=== PATIENT | female | born 1965 ===

== ENCOUNTER 2021-11-14 17:50 | Inpatient (IN) | payer OTHER ==
[~2021-11-14] VITALS: Ht 160 cm; Wt 73.3 kg
[2021-11-14 18:20] LABS: Calcium, Ionized (POC) 1.12 mmol/L (1.10-1.46); Chloride (POC) 106 mmol/L (98-108); Creatinine (POC) 0.4 mg/dL (0.6-1.0); Glucose (ISTAT POC) 395 mg/dL (70-99); Hemoglobin (POC) 16.7 g/dL (12.0-16.0); Potassium (POC) 5.7 mmol/L (3.5-5.5); Sodium (POC) 136 mmol/L (135-148); Total CO2 (POC) 20 mmol/L (21-32)
[2021-11-14 18:40] LABS: BASOPHILS ABSOLUTE AUTO 0.07 K/mm3 (0.00-0.23); BASOPHILS PERCENT AUTO 0 % (0-2); EOSINOPHILS ABSOLUTE AUTO 0.03 K/mm3 (0.00-0.68); EOSINOPHILS PERCENT AUTO 0 % (0-6); Hematocrit 45.8 % (33.0-51.0); Hemoglobin 16.5 g/dL (11.5-16.0); IMMATURE GRAN ABSOLUTE AUTO 0.07 K/mm3 (0.00-0.10); IMMATURE GRAN PERCENT AUTO 0 % (0-1); LYMPHOCYTES ABSOLUTE AUTO 2.79 K/mm3 (0.84-5.20); LYMPHOCYTES PERCENT AUTO 18 % (21-46); MONOCYTES ABSOLUTE AUTO 0.72 K/mm3 (0.16-1.47); MONOCYTES PERCENT AUTO 5 % (4-13); Mean Corpuscular HGB 28.9 pg (26.0-34.0); Mean Corpuscular Volume 80 fL (80-100); Mean Platelet Volume 12.2 fL (9.1-12.4); NEUTROPHILS ABSOLUTE AUTO 11.88 K/mm3 (1.96-9.15); NEUTROPHILS PERCENT AUTO 77 % (41-73); Platelet Count 226 K/mm3 (150-400); RDW Coefficient Variation 12.4 % (11.7-14.2); RDW Standard Deviation 35.5 fL (35.1-46.3); Red Blood Cell Count 5.71 M/mm3 (3.80-5.20); White Blood Cell Count 15.56 K/mm3 (4.00-11.30)
[2021-11-14 18:46] LABS: Source, Urine Foley catheter
[2021-11-14 18:58] LABS: Appearance, Urine Clear (Clear); Bilirubin, Urine Neg (Neg); Blood, Urine Neg (Neg); Glucose Qualitative, Urine 4+ (Neg); Ketones, Urine 4+ (Neg); Leukocyte Esterase, Urine Neg (Neg); Nitrite, Urine Neg (Neg); Protein, Urine Neg (Neg); Urobilinogen, Urine NORM (Normal)
[2021-11-14 19:06] LABS: Influenza A, PCR NEGATIVE (NEGATIVE); Influenza B, PCR NEGATIVE (NEGATIVE); Resp Syncytial Virus, PCR NEGATIVE (NEGATIVE); SARS-Cov-2 (COVID-19) PCR, MMC NEGATIVE (NEGATIVE)
[2021-11-14 19:22] LABS: International Normalized Ratio 1.03; Prothrombin Time Results 10.8 Sec (9.7-11.5)
[2021-11-14 19:29] LABS: Color, Urine Pale Yellow (P-Yellow)
[2021-11-14 19:56] LABS: Albumin, Blood 3.6 g/dL (3.4-5.0); Albumin/Globulin Ratio 0.9 (0.8-1.8); Bilirubin, Total 0.7 mg/dL (0.1-1.0); Bun/Creatinine Ratio 39.2 (12.0-20.0); Calcium, Blood 9.8 mg/dL (8.5-10.1); Creatinine, Blood 0.41 mg/dL (0.40-1.00); Globulin, Blood 3.9 g/dL (2.2-4.0); Potassium, Blood 4.2 mmol/L (3.5-5.5); Total Protein, Blood 7.5 g/dL (6.4-8.2)
[2021-11-14 20:16] LABS: Creatine Kinase MB Index 3.4 (0.0-4.0)
[2021-11-14 22:40] LABS: Bun/Creatinine Ratio 32.3 (12.0-20.0); Calcium, Blood 9.2 mg/dL (8.5-10.1); Creatinine, Blood 0.43 mg/dL (0.40-1.00); Potassium, Blood 3.9 mmol/L (3.5-5.5)
[2021-11-15 03:32] LABS: BASOPHILS ABSOLUTE AUTO 0.04 K/mm3 (0.00-0.23); BASOPHILS PERCENT AUTO 0 % (0-2); EOSINOPHILS ABSOLUTE AUTO 0.02 K/mm3 (0.00-0.68); EOSINOPHILS PERCENT AUTO 0 % (0-6); Hematocrit 39.9 % (33.0-51.0); IMMATURE GRAN ABSOLUTE AUTO 0.06 K/mm3 (0.00-0.10); IMMATURE GRAN PERCENT AUTO 0 % (0-1); LYMPHOCYTES ABSOLUTE AUTO 3.61 K/mm3 (0.84-5.20); LYMPHOCYTES PERCENT AUTO 26 % (21-46); MONOCYTES ABSOLUTE AUTO 0.98 K/mm3 (0.16-1.47); MONOCYTES PERCENT AUTO 7 % (4-13); Mean Corpuscular HGB 29.1 pg (26.0-34.0); Mean Corpuscular HGB Conc 35.1 g/dL (31.5-36.5); Mean Corpuscular Volume 83 fL (80-100); Mean Platelet Volume 11.4 fL (9.1-12.4); NEUTROPHILS PERCENT AUTO 66 % (41-73); Platelet Count 218 K/mm3 (150-400); RDW Coefficient Variation 12.3 % (11.7-14.2); RDW Standard Deviation 37.3 fL (35.1-46.3); Red Blood Cell Count 4.81 M/mm3 (3.80-5.20); White Blood Cell Count 13.81 K/mm3 (4.00-11.30)
[2021-11-15 04:07] LABS: Albumin, Blood 3.4 g/dL (3.4-5.0); Anion Gap 10 mmol/L (6-16); Blood Urea Nitrogen 14 mg/dL (8-24); Bun/Creatinine Ratio 37.5 (12.0-20.0); CHOL/HDL RATIO 5.4; CO2, Blood 20 mmol/L (21-32); CPK Creatine Kinase 4058 U/L (26-193); Chloride, Blood 107 mmol/L (98-108); Cholesterol 250 mg/dL (50-200); Creatinine, Blood 0.37 mg/dL (0.40-1.00); Glomerular Filtration Rate 118 (60-); Glucose, Blood 285 mg/dL (70-99); HDL Cholesterol 46 mg/dL (>39); LDL/HDL RATIO 3.5; Low Density Lipoprotein Chol 162 mg/dL (0-110); Phosphorus, Blood 3.5 mg/dL (2.5-4.9); Sodium, Blood 137 mmol/L (136-145); Triglycerides 210 mg/dL (30-160); Very Low Density Lipoprot Chol 42 mg/dL (6-32)
--- NOTE | 2021-11-15 05:25 | NUR ---
SHIFT SUMMARY PATIENT HAS SLEPT T/O SHIFT. UPPER BACK PAIN INTERMITTENTLY PERSISTS. TYLENOL 650MG PO GIVEN ONCE FOR UPPER BACK PAIN WITH RELIEF. HEATING PAD AND UP TO RECLINER THIS AM TO ASSIST WITH BACK PAIN. PATIENT EXPERIENCED NAUSEA TWICE-ZOFRAN 4MG IV X 2 ADMINISTERED WITH RELIEF. PATIENT WAS ABLE TO STAND AND AMBULATE WITH VERBAL CUES FROM STAFF. STORM REMOVED UPON ARRIVING TO UNIT AND ATTENDS IN PLACE-REMAINS DRY AND CLEAN. PATIENT ABLE TO MAKE NEEDS KNOWN TO STAFF. FRIEND, TOMAS, AT BEDSIDE UPON ARRIVAL TO UNIT AND DAUGHTER KRISTA CALLED TO GIVE UPDATE. TR BAND REMOVED AT 0318-SITE CLEANSED WITH CHLOROPREP AND OPSITE PLACED OVER INSERTION SITE. WHITE ARM BOARD IN PLACE TO PREVENT USE OF RT WRIST. NO OTHER CHANGES DURING SHIFT.
--- NOTE | 2021-11-15 10:57 | NUR ---
Spiritual Care request. Pt. is resting in bed, but welcomes my visit. Pt. is pleasant but a little unsettled by her hospitalization, as she is from [place] visiting friends. Listen empathetically. Pt. displays evidence of engagement and gratitude for the care she is receiving. Establish rapport. [place] for Pt. Pt. verbalizes gratitude for the spiritual care visit.
--- NOTE | 2021-11-15 17:53 | NUR ---
ASSUMED CARE OF PT POST TRANSFER FROM ICU14. PT HAS HAD NO COMPLAINTS. VSS. PT IS A&OX4, AMBULATORY IN ROOM. IV SL. NO NEEDS. PT USES CALL LIGHT APPROPRIATELY. WILL CONTINUE TO MONITOR AND GIVE REPORT TO ONCOMING SHIFT RN.
--- NOTE | 2021-11-16 01:05 | NUR ---
POST ADMINISTRATION OF EVENING CARDIAC MEDICATIONS PT BLOOD PRESSURE DROPPED FROM 105/70 TO 73/51, 62/52. PT FEELS NAUSEATED. ZOFRAN GIVEN. RESIDENT CALLED, 1L LACTATED RINGERS BOLUS AND 125ML/HR LR INFUSION ORDERED AND CARDIAC MEDICATION TO BE HELD. WILL CONTINUE TO MONITOR B/P
--- NOTE | 2021-11-16 07:35 | NUR ---
SHIFT SUMMARY PT ALERT AND ORIENTED X4. AFEBRILE. ON RA SATS OVER 94%. HR SR/ST C/O CP TO START SHIFT, RELIEF WITH TYLENOL. PT HYPOTENSIVE THROUGHOUT NIGHT. DR ASHRAF AWARE, TWO SEPARATE 1L BOLUS OF LR GIVEN, 125ML INFUSING, AND MIDORINE WITH SOME RELIEF. PT STATES SHE FEELS HEADACHE WITH BP OF 100/70 BUT FINE WITH HYPOTENSION. PT ABLE TO AMBULATE ON OWN FOR ADL'S. PT ANXIOUS ABOUT HEALTHCARE NEEDS, STATES SHE IS MOVING TO [place] SOON TO LIVE WITH DAUGHTER. R RADIAL SITE C/D/I. IN BED SLEEPING WITH CALL ALARM AT SIDE, WILL CONTINUE TO MONITOR UNTIL REPORT GIVEN TO DAYSHIFT CORWIN
--- NOTE | 2021-11-16 09:10 | NUR ---
AM NOTE... ASSUMED CARE OF PT AT 0700 THE PT IS A&Ox4 AND IND/SBA IN THE ROOM. THE PT WAS ADMITTED FOR A STEMI WITH 2 STENTS PLACED IN THE LAD. THE PT CURRENTLY DENIES ANY CHEST PAIN/PRESSURE BUT IS HYPOTENSIVE WITH SBPs IN THE 60'S-80'S. THE PT IS IN SINUS TACH IN THE LOW 100'S W/OCC PVCs. SHE HAS TRACE EDEMA NOTED TO HER BLE. THE PT DOES C/O OF "SLIGHT LIGHT HEADEDNESS." THE PT IS ON RA WITH O2 SATS >98% L/S CLEAR T/O, RR IS 14-18. BT PRESENT AND HYPOACTIVE, ABD IS SOFT AND NONTENDER TO PALPATION. THE PT DENIES ANY N/V AT THIS TIME. ASSISTANT COUNSEL WAS CALLED AND UPDATED ON THE PT'S CURRENT CONDITION, AN ECHO WAS ORDERED AND THE PROVIDER STATED HE WOULD COME ASSESS THE PT. WILL CONTINUE TO MONITOR.
[2021-11-16 10:47] LABS: Hematocrit 38.4 % (33.0-51.0); Hemoglobin 13.1 g/dL (11.5-16.0)
--- NOTE | 2021-11-16 11:37 | NUR ---
Pt. is awake in bed and welcomes my visit. A local friend is present. Pt. is from out of the area. Restablish rapport with Pt. and introduce spiritual care to friend. Pt. is unsettled spritiually about whether God would accept her. Explore issues of socorro and belief, and pastoral children counselor is given. Pt. displays evidence of acceptance and agreement. Pt. verbalized gratitude for the pastoral encouragemnt. Pts. friend verbalized how pleased she was with the kind of medical care she has seen at [facility]. Pt. verbalized gratitude for the spiritual care visit. Will remain available to the Pt. throughout the day.
--- NOTE | 2021-11-16 12:22 | NUR ---
Echocardiogram using 0.30ml of Definity contrast performed. Pt. had dizziness during contrast administration ( stopped immediately after the infusion was halted) so only 0.30 ml given.
--- NOTE | 2021-11-16 15:19 | NUR ---
Spiritual Care follow up Pt. welcomes my visit. Spiritual care had been paused for medical staff earlier in day. Pt. displayed evidence of peace and comfort when I returned. Prayed with Pt. and discussed potential discharge plans. Pt. verbalized gratitude for the spiritual care visit.
--- NOTE | 2021-11-16 16:26 | NUR ---
PT UPDATE.... THE PT HAD A ECHO DONE IN THE ROOM, ACCORDING TO THE ECHO REPORT THE PT HAS A SMALL MURAL THROMBUS LOCATED IN THE [place], CARDIOLOGY PROVIDER IS AWARE AND NEW ORDERS FOR LOVONOX 60MG BID WERE GIVEN. THIS NEW DOSE WILL START AT 2100 TONIGHT. WILL CONTINUE TO MONITOR.
--- NOTE | 2021-11-16 17:09 | NUR ---
SHIFT SUMMARY.... NO ACUTE NEGATIVE CHANGES NOTED SINCE THE LAST NOTE, THE PT HAS DENIED ANY CHEST PAIN/PRESSURE THIS SHIFT. THE PT HAS C/O OF A HEADACHE THAT WAS TREATED PER EMAR WITH GOOD RESULTS. THE PT HAD AN ECHO DONE AT THE BEDSIDE (SEE ECHO REPORT) AND NEW ORDERS WERE OBTAINED FOR LOVONOX 60MG BID TO START TONIGHT AT 2100. THE PT HAS BEEN UP TO THE [facility] AND THE WALKED TO THE TOILET WHEN SHE IS NOT LIGHTHEADED. THE PT'S BP CONTINUES TO BE SOFT BUT MAPS ARE >65. THE PT CONTINUES ON RA WITH O2 SATS >95% L/S NOTED TO BE CLEAR T/O AND A LITTLE COARSE IN THE BASES BUT THIS HAS IMPROVED T/O THIS AFTERNOON. THE PT IS C/O OF 3/10 PAIN BELOW HER LEFT SCAPULA, THE PT STATED THAT THIS IS A PAIN SHE CAME IN WITH AND THE PAIN INCREASES TO 5/10 WITH COUGHING. THE PT WAS MEDICATED WITH TYLENOL WHICH DID NOT SEEM TO HELP, THE PT WAS GIVEN A HEATING PAD AND OFFERED AN ICE PACK. WILL CONTINUE TO MONITOR UNTIL REPORT IS GIVEN TO ONCOMING RN.
--- NOTE | 2021-11-17 07:24 | NUR ---
SHIFT SUMMARY PT ALERT AND ORIENTED X4. HR SR/ST 90-110'S. AFEBRILE. ON RA SATS OVER 93%. BP CONTINUES TO BE HYPOTENSIVE. CARDIAC MEDICATIONS HELD THIS EVENING. MIDODRINE EFFECTIVE FOR 3 HRS UNTL BP STARTED DROP INTO LOW 70'S HIGH 60'S SYSTOLIC. 250ML BOLUS ORDERED. PT C/O BACK PAIN, RELIEVED PER EMAR. NAUSEA THIS MORNING, SOME RELIEF WITH ZOFRAN. MOTHER IN ROOM THROUGHOUT NIGHT. NO C/O CHEST PAIN. INDEPENDENT FOR ADL'S. FAMILY PRESENT. REPORT GIVEN TO DAYSVTFT CORWIN
[2021-11-17 09:13] LABS: Albumin/Globulin Ratio 0.9 (0.8-1.8); Bilirubin, Total 0.5 mg/dL (0.1-1.0); Bun/Creatinine Ratio 36.3 (12.0-20.0); Creatinine, Blood 0.52 mg/dL (0.40-1.00); Globulin, Blood 3.4 g/dL (2.2-4.0); Potassium, Blood 3.8 mmol/L (3.5-5.5); Total Protein, Blood 6.4 g/dL (6.4-8.2)
[2021-11-17] MEDS ORDERED: ASPI81CH PO (13:52)
[2021-11-17] MEDS ORDERED: ATOR80 PO (13:53)
[2021-11-17] MEDS ORDERED: CLOP75 PO (13:53)
[2021-11-17] MEDS ORDERED: EZET10 PO (13:54)
[2021-11-17] MEDS ORDERED: SEMGLEE (Y100 UNIT/2 SC (13:56)
[2021-11-17] MEDS ORDERED: PANT40 PO (13:57)
[2021-11-17] MEDS ORDERED: Nicoderm Cq1 EAC1 TOP (13:57)
[2021-11-17] MEDS ORDERED: SPIR25 PO (13:58)
[2021-11-17] MEDS ORDERED: XARELTO15 M1 PO (13:59)
--- NOTE | 2021-11-17 17:52 | NUR ---
Shift Summary Pt alert, oriented x3, calm and cooperative with care. Pt up in chair and in bed intermittently t/o shift, sba in room; pt went on walk through unit, appears to tolerate well. Pt reporting lower back pain, medicated per emar. Pt denies chest pain/pressure or pain radiating down arm, sob, nasuea, or numb/tingling. Pt reports "slight" dizziness when first moving out of bed. Pt tele sinus to sinus tach with activity, bp soft, map >65 t/o shift. Pt Ls clear t/o dims in bases, breathing even and unlabored, spo2 >90% on ra. Other vss. No other acute changes noted. Will continue to monitor until report given to oncoming rn.
--- NOTE | 2021-11-17 23:05 | NUR ---
CARE ASSUMPTION: PATIENT PROPPED ON PILLOWS IN BED AND STATES THE EGG FOAM HAS HELPED RELIEVE SOME BACK PAIN. SYSTOLIC BP <100. PATIENT DENIES CHEST PAIN OR SOB. BED LOW WITH CALL LIGHT IN PLACE. CARDIAC MEDICATIONS HELD.
--- NOTE | 2021-11-18 04:07 | NUR ---
SHIFT SUMMARY: PATIENT DENIES CHEST/ARM PAIN OR SOB. SOME DISCOMFORT RELATED TO BED - MANAGED WITH PILLOWS AND EGG CRATE. PATIENT REMAINS HYPOTENSIVE, OTHER VSS. ANGIO SITE C/D/I WITH NO PAIN OR DISCOMFORT. MEDICATED PER EMAR. PATIENT ACTIVE IN CARE AND PLEASANT. BED LOW WITH CALL LIGHT IN REACH. WILL CONTINUE TO MONITOR AND REPORT TO ONCOMING RN.
--- NOTE | 2021-11-18 17:01 | NUR ---
Shift Summary Pt alert, oriented x4; appears anxious at times, easily redirected with daughter at bedside and edcuation. Pt reports headache, radiating to neck, medicated with tylenol per orders. Pt denies chest pain/pressure, sob, nasuea, and numb/tingling. Tele sinus/sinus tach, plans to start metoprolol this evening, bp soft but stable map >65 t/o shift. Ls clear, spo2 >90% t/o shift. Other vss. No other acute changes. Will continue to monitor until report given to oncoming rn.
--- NOTE | 2021-11-18 22:00 | NUR ---
ASSUMED CARE AT 1900 PT LAYING IN BED WATCHING TV AT SHIFT CHANGE. PT IS PLEASENT, ALERT/ORIENTED X4 AND ABLE TO MAKE HER NEEDS KNOWN; OCCATIONALLY ANXIOUS ABOUT TX AND MEDICATIONS BUT ONCE EDUCATED THE ANXIETY CALMS DOWN. SPO2 >98% ON RA. AFEBRILE. HR 100-110; SBP 80-90'S, MAP >65; NO C/O CHEST PAIN; BP AT TIME OF GIVING EVENING METOPROLOL 84/57 MAP 66, DOSE HELD. PT IS ABLE TO AMBULATE IN ROOM INDEPENDENTLY AND SAFELY. PT REPOSITIONS SELF IN BED. DRESSING TO RT WRIST C/D/I, NO SIGNS OF BLEEDING OR HEMATOMA. SEE SHIFT ASSESSMENT FOR FULL ASSESSMENT.
--- NOTE | 2021-11-19 06:12 | NUR ---
END OF SHIFT SUMMARY NO ACUTE EVENTS OVER NIGHT. PT WAS ABLE TO SLEEP FOR MOST OF THE NIGHT. PT IS A/O X4 AND ABLE TO MAKE HER NEEDS KNOWN. SPO2 >97% ON RA. HR 80-100. SBP 80-100, MAP >65; EVENING METOPROLOL HELD. PT ABLE TO AMBULATE TO BATHROOM INDEPENDENTLY. TYLENOL GIVEN ONCE FOR BACK PAIN. WILL REPORT TO AM RN WHEN AVAILABLE.
--- NOTE | 2021-11-19 07:43 | NUR ---
Am note Pt alert, orientedx4, calm and cooperative with care. Pt resting in bed, up ind in room. Pt denies pain, chest pain/pressure, sob, nausea, dizziness and numb/tingling. Tele sinus 90's, bp 96/69 this am stable. Ls clear, spo2 >90% on ra, breahting even and unlabored. Abd soft nontender, hypoacitive bt t/o, no bm noted. No s/s of distress noted. Pt metoprolol held last night due to bp. Vss. Will continue to monitor.
--- NOTE | 2021-11-19 14:32 | NUR ---
Shift Summary No acute changes noted t/o shift. No s/sx of distress noted. Pt anxious about discharging home. bp stable, map >65, hr 90-100's. Other vss. No other acute changes. Pt, mother, daughter and friend educated on discharge insturctions, follow up appointments, prescriptions and wound care. Pt's daughter is working on setting up pcp and cardiology appointment in [place], where pt is from. 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 Educated pt and family on insulin administration and glucose testing, pt showed with hospital insulin pen and completed teach back. Pt edcuated on currently illness, angio with stents aftercare and radial site care. Pt educated on new prescriptions. Comfirmed pt had stent cards in purse. Pt left via wheelchair at approx [phone].
== END 2021-11-19 13:51 | disposition home or self-care (01) | DRG 247 ==
LOC: ER 17:50 → ICUW 18:14 → PCU 18:14 → ICUE 18:14 → ICUW 11-15 07:36 → PCU 11-15 14:16
PROVIDERS: Emergency Medicine; Family Medicine; Student in an Organized Health Care Education/Training Program; ADMIT Internal Medicine Interventional Cardiology
PROC: 027035Z Dilation of Coronary Artery, One Artery with Two Drug-eluting Intraluminal Devices, Percutaneous Approach (ICD-10-PCS; principal; 2021-11-14)
PROC: 4A023N7 Measurement of Cardiac Sampling and Pressure, Left Heart, Percutaneous Approach (ICD-10-PCS; 2021-11-14)
PROC: B2111ZZ Fluoroscopy of Multiple Coronary Arteries using Low Osmolar Contrast (ICD-10-PCS; 2021-11-14)
PROC: B24BZZ3 Ultrasonography of Heart with Aorta, Intravascular (ICD-10-PCS; 2021-11-14)
PROC: B2151ZZ Fluoroscopy of Left Heart using Low Osmolar Contrast (ICD-10-PCS; 2021-11-14)
DX: I21.02 ST elevation (STEMI) myocardial infarction involving left anterior descending coronary artery (principal); I23.6 Thrombosis of atrium, auricular appendage, and ventricle as current complications following acute myocardial infarction; Z20.822 Contact with and (suspected) exposure to COVID-19; I95.1 Orthostatic hypotension; R00.0 Tachycardia, unspecified; E11.9 Type 2 diabetes mellitus without complications; D72.828 Other elevated white blood cell count; E78.5 Hyperlipidemia, unspecified; F17.210 Nicotine dependence, cigarettes, uncomplicated; Z71.6 Tobacco abuse counseling; Z88.1 Allergy status to other antibiotic agents; Z88.6 Allergy status to analgesic agent; Z90.49 Acquired absence of other specified parts of digestive tract; Z98.891 History of uterine scar from previous surgery
CPT/HCPCS: 0241U; 36415; 51702; 71045; 76937; 80047; 80048; 80053; 80061; 80069; 81003; 82550; 82553; 82947; 83036; 83690; 83880; 84484; 85014; 85018; 85025; 85347; 85610; 85730; 92978; 93005; 93010; 93458; 94760; 94762; 99152; 99153; 99285-25; A9270; C1725; C1753; C1757; C1769; C1874; C1887; C1894; C8929; C9606; J0153; J1644; J1650; J1815; J1940; J2250; J2370; J2405; J3010; J3246; J7030; J7040; J7120; Q9957; Q9967